=== PATIENT | male | born 1975 | race Caucasian/White ===

== ENCOUNTER 2018-03-25 20:08 | Emergency (ER) | payer MEDICAID ==
[~2018-03-25] VITALS: Ht 167.6 cm; Wt 91.0 kg
[2018-03-26] MEDS ORDERED: HYDROCODONE/ACETAMINOPHEN 5/325MG TABLET PO ONE (00:45)
[2018-03-26 01:00] VITALS: BP 122/75
== END 2018-03-26 03:07 | disposition home or self-care (01) ==
LOC: ER 20:08
DX: M79.641 Pain in right hand (principal)
CPT/HCPCS: 73130; 99284

== ENCOUNTER 2018-05-06 20:45 | Emergency (ER) | payer MEDICAID ==
[~2018-05-06] VITALS: Ht 167.6 cm; Wt 95.0 kg
[2018-05-07] MEDS ORDERED: HYDROCODONE/ACETAMINOPHEN 5/325MG TABLET PO ONE (02:45)
[2018-05-07 04:35] VITALS: BP 129/74
== END 2018-05-07 04:37 | disposition home or self-care (01) ==
LOC: ER 20:45
DX: S93.402A Sprain of unspecified ligament of left ankle, initial encounter (principal); W22.09XA Striking against other stationary object, initial encounter; Y93.01 Activity, walking, marching and hiking; Y92.480 Sidewalk as the place of occurrence of the external cause; F17.210 Nicotine dependence, cigarettes, uncomplicated; F12.90 Cannabis use, unspecified, uncomplicated
CPT/HCPCS: 73610; 99284

== ENCOUNTER 2022-11-30 15:27 | Emergency (ER) | payer MEDICAID, OTHER ==
[~2022-11-30] VITALS: Ht 167.6 cm; Wt 94.0 kg
[2022-11-30 15:32] VITALS: BP 142/73
[2022-11-30] MEDS ORDERED: BO1 TP (19:54)
== END 2022-11-30 21:46 | disposition home or self-care (01) ==
LOC: ER 15:27
DX: S61.315A Laceration without foreign body of left ring finger with damage to nail, initial encounter (principal); F12.10 Cannabis abuse, uncomplicated; W26.0XXA Contact with knife, initial encounter; Y93.G3 Activity, cooking and baking; Y92.010 Kitchen of single-family (private) house as the place of occurrence of the external cause
CPT/HCPCS: 99281